=== PATIENT | female | born 1980 | race Caucasian/White ===

== ENCOUNTER 2018-01-15 11:00 | Emergency (ER) | payer MEDICAID ==
[~2018-01-15] VITALS: Ht 177.8 cm; Wt 105.1 kg
[2018-01-15 11:05] VITALS: BP 131/77
[2018-01-15] MEDS ORDERED: HYDROcodone/APAP 5/325 TABLET PO ONE (11:30)
[2018-01-15] MEDS ORDERED: HYDROcodone/APAP 5/325 TABLET ONE (11:38)
== END 2018-01-15 12:05 ==
LOC: ED 11:59
DX: T63.441A Toxic effect of venom of bees, accidental (unintentional), initial encounter (principal); R13.10 Dysphagia, unspecified; Y92.89 Other specified places as the place of occurrence of the external cause
CPT/HCPCS: 99283; Q0177

== ENCOUNTER 2018-08-22 09:19 | Emergency (ER) | payer MEDICAID ==
[~2018-08-22] VITALS: Ht 180.3 cm; Wt 102.5 kg
[2018-08-22] MEDS ORDERED: KETOROLAC 30 MG/1 ML IM ONE (10:00)
[2018-08-22] MEDS ORDERED: KETOROLAC 30 MG/1 ML ONE (10:25)
[2018-08-22 11:21] VITALS: BP 137/82
== END 2018-08-22 11:23 | disposition home or self-care (01) ==
LOC: ED 11:19
DX: S83.411A Sprain of medial collateral ligament of right knee, initial encounter (principal); S83.421A Sprain of lateral collateral ligament of right knee, initial encounter; W01.0XXA Fall on same level from slipping, tripping and stumbling without subsequent striking against object, initial encounter; Y93.89 Activity, other specified; Y92.099 Unspecified place in other non-institutional residence as the place of occurrence of the external cause; Y99.8 Other external cause status
CPT/HCPCS: 73564; 96372; 99283; J1885

== ENCOUNTER 2019-06-09 18:03 | Emergency (ER) | payer MEDICAID ==
[~2019-06-09] VITALS: Ht 180.3 cm; Wt 106.0 kg
[~2019-06-09 18:03] MED LIST: ACET325T26 PO; BCP; ENOX100S5 SQ; WARF5TAB PO
--- NOTE | 2019-06-09 18:50 | NUR ---
TASK RN: Provided report to JAQUELIN Hancock. All questions answered. JAQUELIN Hancock to assume care of this pt.
--- NOTE | 2019-06-09 19:09 | NUR ---
pt to x ray at this time.
[2019-06-09 19:17] LABS: BASOPHILS # (AUTO) 0.03 x10^3/uL (0-0.1); BASOPHILS % (AUTO) 0 % (0-1); EOSINOPHILS # (AUTO) 0.55 x10^3/uL (0-0.4); EOSINOPHILS % (AUTO) 7 % (1-7); LYMPHOCYTES # (AUTO) 3.23 x10^3/uL (1-3.4); LYMPHOCYTES % (AUTO) 43 % (22-44); MD NO; MEAN CORPUSCULAR HEMOGLOBIN 28.9 pg (27.0-34.8); MEAN CORPUSCULAR HGB CONC 32.7 g/dL (32.4-35.8); MEAN CORPUSCULAR VOLUME 88.3 fL (80-100); MEAN PLATELET VOLUME 8.7 fL (7.4-10.4); MONOCYTES % (AUTO) 7 % (2-9); NEUTROPHILS % (AUTO) 43 % (42-75); PLATELET COUNT 297 x10^3/uL (130-400); RED CELL DISTRIBUTION WIDTH 14.5 % (9.6-15.2)
[2019-06-09 19:28] LABS: ALBUMIN 3.4 g/dL (3.4-5.0); ANION GAP 7 mmol/L (5-15); CALCIUM 8.5 mg/dL (8.5-10.1); CHLORIDE 110 mmol/L (98-107); CREATININE 0.77 mg/dL (0.55-1.02)
[2019-06-09 19:33] LABS: FREE T4 (FREE THYROXINE) 0.89 ng/dL (0.76-1.46)
[2019-06-09 19:34] LABS: INTERNATIONAL NORMALIZED RATIO 1.41 (0.93-1.1); PROTHROMBIN TIME 14.6 Seconds (9.6-11.5)
--- NOTE | 2019-06-09 19:53 | NUR ---
PT PALCED FOR RECHECK BY BORA DIAZ
[2019-06-09 20:21] VITALS: BP 126/80
--- NOTE | 2019-06-09 20:21 | NUR ---
er in to discuss poc with pt.
== END 2019-06-09 20:48 | disposition home or self-care (01) ==
LOC: ED 20:40
DX: R53.1 Weakness (principal); R05 Cough; R09.81 Nasal congestion; R51 Headache; F17.200 Nicotine dependence, unspecified, uncomplicated
CPT/HCPCS: 36415; 71046; 80048; 82040; 84439; 84443; 84703; 85025; 85610; 85730; 93005; 99284

== ENCOUNTER 2020-06-30 18:14 | Emergency (ER) | payer MEDICAID ==
[~2020-06-30] VITALS: Ht 177.8 cm; Wt 114.2 kg
[~2020-06-30 18:14] MED LIST changes: -WARF5TAB PO; +WARF5TAB2 PO
--- NOTE | 2020-06-30 19:56 | NUR ---
Note juliaone in ED - 06/30/20 at 2002 by [email or web address] PATIENT WHEELED BACK FROM LOBBY WITH CHIEF C/O POSSIBLE BLOOD CLOT IN LEFT LEG. PATIENT WAS AT URGENT CARE TODAY FOR PAIN AND SWELLING IN LEFT FOOT, SWELLING X2 DAYS, PAIN X2 WEEKS. PATIENT SENT HERE FROM URGENT CARE TO CHECK FOR BLOOD CLOT, PATIENT HAS HISTORY OF BLOOD CLOT IN SUPERIOR VENA CAVA. NO SIGNS OF ACUTE DISTRESS, CONNECTED TO VITALS MACHINE, CALL LIGHT WITHIN REACH.
--- NOTE | 2020-06-30 20:03 | NUR ---
PATIENT WHEELED BACK FROM LOBBY WITH CHIEF C/O POSSIBLE BLOOD CLOT IN LEFT LEG. PATIENT WAS AT URGENT CARE TODAY FOR PAIN AND SWELLING IN LEFT FOOT, SWELLING X2 DAYS, PAIN X2 WEEKS. PATIENT SENT HERE FROM URGENT CARE TO CHECK FOR BLOOD CLOT, PATIENT HAS HISTORY OF MESENTERIC BLOOD CLOT. LEFT FOOT AND ANKLE IS SWOLLEN. NO SIGNS OF ACUTE DISTRESS, CONNECTED TO VITALS MACHINE, CALL LIGHT WITHIN REACH.
--- NOTE | 2020-06-30 20:38 | NUR ---
ERMD AT BEDSIDE FOR EVALUATION.
[2020-06-30 21:03] VITALS: BP 121/68
== END 2020-06-30 21:09 | disposition home or self-care (01) ==
LOC: ED 20:14
DX: M79.662 Pain in left lower leg (principal); M25.572 Pain in left ankle and joints of left foot; R51.9 Headache, unspecified; M79.89 Other specified soft tissue disorders; Z87.891 Personal history of nicotine dependence
CPT/HCPCS: 99284

== ENCOUNTER → 2020-07-05 | Outpatient (CLI) | payer MEDICAID | END | disposition home or self-care (01) | LOC: RAD 10:39 | PROVIDERS: ATTEND Physician Assistant | DX: S93.692A Other sprain of left foot, initial encounter (principal); M79.672 Pain in left foot; X58.XXXA Exposure to other specified factors, initial encounter; Y92.89 Other specified places as the place of occurrence of the external cause; Y93.89 Activity, other specified; Y99.8 Other external cause status ==

== ENCOUNTER 2020-12-06 19:32 | Emergency (ER) | payer MEDICAID ==
[~2020-12-06] VITALS: Ht 177.8 cm; Wt 102.0 kg
[2020-12-06] MEDS ORDERED: KETOROLAC 30 MG/1 ML ONE (20:29)
[2020-12-06] MEDS ORDERED: KETOROLAC 30 MG/1 ML IM ONE (20:30)
--- NOTE | 2020-12-06 20:46 | NUR ---
PT MEDICATED FOR PAIN. UA SENT TO LAB. PT TO CT
[2020-12-06 21:00] LABS: MICROSCOPIC AUTO
[2020-12-06 21:20] LABS: BASOPHILS % (AUTO) 1 % (0-1); EOSINOPHILS % (AUTO) 3 % (1-7); LYMPHOCYTES % (AUTO) 38 % (22-44); MEAN CORPUSCULAR HEMOGLOBIN 29.2 pg (27.0-34.8); MEAN CORPUSCULAR HGB CONC 33.5 g/dL (32.4-35.8); MEAN PLATELET VOLUME 8.8 fL (7.4-10.4); MONOCYTES % (AUTO) 8 % (2-9); NEUTROPHILS % (AUTO) 52 % (42-75); PLATELET COUNT 275 x10^3/uL (130-400); RED BLOOD COUNT 4.72 x10^6/uL (3.82-5.3)
[2020-12-06 21:22] LABS: MD NO
[2020-12-06 21:27] LABS: ALBUMIN 3.4 g/dL (3.4-5.0); ANION GAP 4 mmol/L (5-15); CALCIUM 8.6 mg/dL (8.5-10.1); CHLORIDE 109 mmol/L (98-107)
[2020-12-06] MEDS ORDERED: LIDODERM 5% PATCH TD ONE ×2 (21:30→21:36)
[2020-12-06] MEDS ORDERED: HYDROcodone/APAP 5/325 TABLET PO PRN (21:30)
[2020-12-06] MEDS ORDERED: DIAZEPAM 5 MG TABLET PO ONE (21:30)
[2020-12-06] MEDS ORDERED: HYDROcodone/APAP 5/325 TABLET ONE (21:31)
[2020-12-06] MEDS ORDERED: DIAZEPAM 5 MG TABLET ONE (21:31)
[2020-12-06 21:39] VITALS: BP 116/73
--- NOTE | 2020-12-06 21:39 | NUR ---
PT REMEDICATED FOR PAIN. VSS. CALL LIGHT IN REACH
--- NOTE | 2020-12-06 22:06 | NUR ---
Patient given discharge instructions and they have confirmed that they understand the instructions. Patient ambulatory with steady gait.
== END 2020-12-06 22:09 | disposition home or self-care (01) ==
LOC: ED 21:22
DX: M54.5 Low back pain (principal); R10.32 Left lower quadrant pain
CPT/HCPCS: 36415; 74176; 80048; 81001; 82040; 84703; 85025; 96372; 99284; J1885